=== PATIENT | male | born 1990 | race Two or more races ===

== ENCOUNTER 2018-02-07 01:46 | Inpatient (IN) | payer OTHER ==
[~2018-02-07] VITALS: Ht 172.7 cm; Wt 83.9 kg
[2018-02-07] VITALS (8 sets, daily range): BP systolic 114–166; BP diastolic 66–95
[2018-02-07] MEDS ORDERED: Naloxone 1mg/ml 2ml IVP ONE ×2 (02:00→04:30)
[2018-02-07] MEDS ORDERED: LORazepam Inj 2mg/ml 1ml IV ONE (02:00)
[2018-02-07 02:10] LABS: HEMATOCRIT 51.3 % (42.0-52.0); HEMOGLOBIN 15.7 G/DL (14.2-18.0); MEAN CORPUSCULAR VOLUME 83 FL (80-99); PLATELET COUNT 382 K/UL (150-450); RED BLOOD COUNT 6.19 M/UL (4.70-6.10); RED CELL DISTRIBUTION WIDTH 12.7 % (11.6-14.8); WHITE BLOOD COUNT 15.5 K/UL (4.8-10.8)
[2018-02-07] MEDS ORDERED: LORazepam Inj 2mg/ml 1ml ONE (02:12)
[2018-02-07] MEDS ORDERED: Naloxone 1mg/ml 2ml ONE ×2 (02:15→04:25)
[2018-02-07 02:27] LABS: ALANINE AMINOTRANSFERASE 124 U/L (12-78); ALBUMIN/GLOBULIN RATIO 0.9 (1.0-2.7); ALKALINE PHOSPHATASE 92 U/L (46-116); ANION GAP 13 mmol/L (5-15); ASPARTATE AMINO TRANSFERASE 107 U/L (15-37); BILIRUBIN,TOTAL 0.3 MG/DL (0.2-1.0); BLOOD UREA NITROGEN 19 mg/dL (7-18); CALCIUM 8.4 MG/DL (8.5-10.1); CARBON DIOXIDE 24 MMOL/L (21-32); CHLORIDE 100 MMOL/L (98-107); CKMB 7.5 NG/ML (0.0-3.6); CREATINE KINASE 480 U/L (26-308); CREATININE 2.2 MG/DL (0.55-1.30); POTASSIUM 5.1 MMOL/L (3.5-5.1); SODIUM 137 MMOL/L (136-145)
[2018-02-07 02:34] LABS: APPEARANCE,URINE CLEAR; BILIRUBIN, URINE NEGATIVE (NEGATIVE); COLOR,URINE PALE YELLOW; GLUCOSE, URINE (UA) 4+ (NEGATIVE); KETONES,URINE NEGATIVE (NEGATIVE); LEUKOCYTE ESTERASE ,URINE NEGATIVE (NEGATIVE); NITRITE,URINE NEGATIVE (NEGATIVE); PH,URINE 5 (4.5-8.0); PROTEIN,URINE 2+ (NEGATIVE); UROBILINOGEN,URINE NORMAL MG/DL (0.0-1.0)
[2018-02-07] MEDS ORDERED: Insulin Human Regular 100units/ml 3ml ONE (02:36)
--- NOTE | 2018-02-07 02:41 | Emergency Room Report ---
History of Present Illness General Chief Complaint: Substance Abuse Source: Patient, EMS Present Illness HPI Patient is brought in by paramedics with reports of drug overdose It was reported that the patient had ingested heroin and cocaine Patient was given Narcan in the field With some appropriate response Patient here initially again more awake however throughout his stay becomes more somnolent Patient's history of present illness is limited As the patient is in acute distress Short of breath Drug overdose He is able to report that he has some shortness of breath Patient also had vomitus around his oral mucosa Allergies: Coded Allergies: No Known Allergies (Unverified , 02/07/18) Patient History Limited by: medical condition Past Medical History: see triage record Pertinent Family History: unable to obtain Reviewed Nursing Documentation: PMH: Agreed; PSxH: Agreed Nursing Documentation-PMH Past Medical History: No Stated History Review of Systems All Other Systems: limited - Other than the ones mentioned in the history of present illness all others are reviewed however they do stay limited due to the patient's mental status Physical Exam Vital Signs Date Time Temp Pulse Resp B/P (MAP) Pulse Ox O2 Delivery O2 Flow Rate FiO2 02/07/18 01:33 98.2 134 22 166/84 95 Room Air 98.2 02/07/18 02:23 4.0 Sp02 EP Interpretation: reviewed, normal General Appearance: moderate distress - Respiratory distress Head: normocephalic, atraumatic Eyes: bilateral eye PERRL, bilateral eye EOMI ENT: dry mucus membranes Neck: supple Respiratory: no retraction, crackles - Left lower lobe Cardiovascular #1: tachycardia Gastrointestinal: non tender, soft, no mass Musculoskeletal: normal inspection Neurologic: responsive - Patient initially more awake and responsive, no obvious focal deficit Skin: normal color, no rash Lymphatic: no adenopathy Procedures Critical Care Time Critical Care Time 50 minutes for critical presentation Findings concerning for respiratory pathology and possible failure multiple reexaminations not including any procedural time Medical Decision Making Diagnostic Impression: Primary Impression: Aspiration pneumonia Additional Impressions: Drug overdose Accidental drug overdose ER Course Patient was reportedly brought in from a substance sober living facility Upon arrival the patient was found to be hypoxic on room air Requires repeat Narcan dosing here Patient's x-ray shows concerning infiltrate in the left lower lobe Patient remained tachycardic and now blood work also reveals elevated glucose however no obvious signs of DKA patient provided with further broad-spectrum antibiotics IV hydration and requires higher level of care admission Labs Test 02/07/18 01:45 02/07/18 01:55 02/07/18 02:17 02/07/18 04:10 White Blood Count 15.5 K/UL (4.8-10.8) Red Blood Count 6.19 M/UL (4.70-6.10) Hemoglobin 15.7 G/DL (14.2-18.0) Hematocrit 51.3 % (42.0-52.0) Mean Corpuscular Volume 83 FL (80-99) Mean Corpuscular Hemoglobin 25.4 PG (27.0-31.0) Mean Corpuscular Hemoglobin Concent 30.7 G/DL (32.0-36.0) Red Cell Distribution Width 12.7 % (11.6-14.8) Platelet Count 382 K/UL (150-450) Mean Platelet Volume 6.5 FL (6.5-10.1) Neutrophils (%) (Auto) % (45.0-75.0) Lymphocytes (%) (Auto) % (20.0-45.0) Monocytes (%) (Auto) % (1.0-10.0) Eosinophils (%) (Auto) % (0.0-3.0) Basophils (%) (Auto) % (0.0-2.0) Sodium Level 137 MMOL/L (136-145) Potassium Level 5.1 MMOL/L (3.5-5.1) Chloride Level 100 MMOL/L (98-107) Carbon Dioxide Level 24 MMOL/L (21-32) Anion Gap 13 mmol/L (5-15) Blood Urea Nitrogen 19 mg/dL (7-18) Creatinine 2.2 MG/DL (0.55-1.30) Estimat Glomerular Filtration Rate 36.4 mL/min (>60) Glucose Level 580 MG/DL (74-106) Calcium Level 8.4 MG/DL (8.5-10.1) Total Bilirubin 0.3 MG/DL (0.2-1.0) Aspartate Amino Transf (AST/SGOT) 107 U/L (15-37) Alanine Aminotransferase (ALT/SGPT) 124 U/L (12-78) Alkaline Phosphatase 92 U/L (46-116) Total Creatine Kinase 480 U/L (26-308) Creatine Kinase MB 7.5 NG/ML (0.0-3.6) Creatine Kinase MB Relative Index 1.5 Total Protein 8.5 G/DL (6.4-8.2) Albumin 4.0 G/DL (3.4-5.0) Globulin 4.5 g/dL Albumin/Globulin Ratio 0.9 (1.0-2.7) Lipase 143 U/L (73-393) Serum Alcohol < 3 mg/dL Lactic Acid Level 5.10 mmol/L (0.4-2.0) 2.60 mmol/L (0.66-2.22) Urine Color Pale yellow Urine Appearance Clear Urine pH 5 (4.5-8.0) Urine Specific [place] 1.015 (1.005-1.035) Urine Protein 2+ (NEGATIVE) Urine Glucose (UA) 4+ (NEGATIVE) Urine Ketones Negative (NEGATIVE) Urine Occult Blood 2+ (NEGATIVE) Urine Nitrite Negative (NEGATIVE) Urine Bilirubin Negative (NEGATIVE) Urine Urobilinogen Normal MG/DL (0.0-1.0) Urine Leukocyte Esterase Negative (NEGATIVE) Urine RBC 0-2 /HPF (0 - 0) Urine WBC 0 /HPF (0 - 0) Urine Squamous Epithelial Cells None /LPF (NONE/OCC) Urine Bacteria Few /HPF (NONE) Urine Hyaline Casts 0-2 /LPF (NONE) Urine Fine Granular Casts 0-2 /LPF (NONE) Urine Opiates Screen Positive (NEGATIVE) Urine Barbiturates Screen Negative (NEGATIVE) Phencyclidine (PCP) Screen Negative (NEGATIVE) Urine Amphetamines Screen Negative (NEGATIVE) Urine Benzodiazepines Screen Negative (NEGATIVE) Urine Cocaine Screen Positive (NEGATIVE) Urine Marijuana (THC) Screen Negative (NEGATIVE) EKG Diagnostic Results Rate: tachycardiac Rhythm: other ST Segments: no acute changes Rhythm Strip Diag. Results EP Interpretation: yes Rate: 120 Rhythm: no PVC's, no ectopy, other - Sinus tach Chest X-Ray Diagnostic Results Chest X-Ray Diagnostic Results : Chest X-Ray Ordered: Yes # of Views/Limited/Complete: 1 View Indication: Shortness of Breath EP Interpretation: Yes Interpretation: no pneumothorax, other - Large left-sided infiltrate, heart size normal no acute bony abnormalities Impression: Other - Large left-sided infiltrate Electronically Signed by: Stefan Trevino DO Last Vital Signs Date Time Temp Pulse Resp B/P (MAP) Pulse Ox O2 Delivery O2 Flow Rate FiO2 02/07/18 02:23 98.0 127 20 146/88 93 Nasal Cannula 4.0 98.0 Status: improved Disposition: ADMITTED INPATIENT Condition: Critical Scripts Unable to Obtain Active Prescriptions or Reported Meds Stefan Trevino DO Feb 07, 2018 02:41
[2018-02-07] MEDS ORDERED: Zosyn 3.375gm inj ONE (02:45)
[2018-02-07] MEDS ORDERED: Insulin Human Regular 100units/ml 3ml IV ONE (02:45)
[2018-02-07] MEDS ORDERED: Vancomycin 1.5gm/D5W 250ml 250 ML IVPB ONE ×2 (02:45→03:15)
[2018-02-07] MEDS ORDERED: Piperacillin/Tazobactam 3.375 GM in NS 110 ML IVPB ONE (02:45)
[2018-02-07] MEDS ORDERED: Levalbuterol Inh UD 1.25mg/0.5ml HHN ONE (06:15)
[2018-02-07] MEDS ORDERED: Levalbuterol Inh UD 1.25mg/0.5ml ONE (06:31)
[2018-02-07] MEDS ORDERED: Pantoprazole Inj IVP SCH (09:30)
[2018-02-07] MEDS ORDERED: Albuterol/Ipratropium 3ml neb HHN SCH (11:00)
--- NOTE | 2018-02-07 11:15 | History and Physical Report ---
DATE OF ADMISSION: 02/07/2018 HISTORY OF PRESENT ILLNESS: This is a 27-year-old male, who reportedly overdosed on heroin and cocaine yesterday. The patient was given Narcan in the field as he was found to be stuporous. He was again given Narcan in the emergency room here at [place]. The patient reports shortness of breath. The patient had evidence of vomitus around the oral mucosa. He is short of breath, although he is agitated and states he wants to leave. PAST MEDICAL HISTORY: Notable for substance abuse. SURGERIES: None. HOME MEDICATIONS: None. ALLERGIES: None reported. SOCIAL HISTORY: Not obtainable. PHYSICAL EXAMINATION: GENERAL: Reveals a young man. VITAL SIGNS: Blood pressure is 114/90, heart rate 94, and respirations 20. He is afebrile. He is 93% on non-rebreather mask. HEENT: Unremarkable. CHEST: Shows clear breath sounds bilaterally with normal heart sounds. ABDOMEN: Soft. EXTREMITIES: There is no edema. NEUROLOGIC: Nonfocal. LABORATORY DATA: Lab testing shows white count 15,000, otherwise, normal CBC and BMP except for glucose of 580. Lactic acid 5.1, now 2.6. He has elevation of AST and ALT. Total CK is 480. Creatinine 2.2. Imaging studies unremarkable. IMPRESSION: 1. Hyperglycemia. 2. Substance abuse. 3. Probable pneumonia. 4. Aspiration left lower lobe. 5. Hypoxemia. DISCUSSION: Admit to the hospital. Start IV antibiotics. We will discontinue dextrose and start insulin sliding scale. The patient does not have a known history of diabetes. We will start ice chips. We will follow carefully. Juan Hughes M.D. DR: SHAKA JOB#: [id number] CC:
--- NOTE | 2018-02-07 12:13 | Diagnostic Imaging Report ---
Indication: Chest pain Technique: One view of the chest Comparison: none Findings: There is considerable consolidation left mid and lower lung periphery. There is generalized mild interstitial prominence and bronchial wall thickening elsewhere. The heart is upper limits normal in size. Pleural spaces are grossly clear Impression: Left mid and lower lung infiltrate, most likely pneumonia Generalized interstitial prominence and central bronchial wall thickening. Nonspecific, but suspect on the basis of chronic bronchitis changes
--- NOTE | 2018-02-08 08:50 | Discharge Summary ---
Discharge Summary Discharge Summary _ DATE OF ADMISSION: 02/07/2018 DATE OF DISCHARGE: 02/07/2018. Patient sign AGAINST MEDICAL ADVICE REASON FOR ADMISSION: 27 years old male with past medical history significant for substance abuse, presented to emergency room for overdose on heroine and cocaine. Narcan was given in the field, after patient found to be stuporous . The patient had evidence of vomitus around the mouth. Upon presentation patient with alerted mental status. Vital signs revealed no fever, tachycardia . Another Narcan given in emergency department. Laboratory workup revealed leukocytosis with WBC 15 . Urine toxicology screen was positive for cocaine and opiates. Glucose 580 without signs of DKA. Lactic acid 5.1, repeated 2.6 . AST 107 ,ALT 124, CK 480, creatinine 2.2, stable lipase and total bilirubin. Chest x-ray revealed left mid and lower lobe infiltrate Urinalysis revealed no evidence of UTI. Patient was started on supplemental oxygen. Patient admitted with diagnoses of drug overdose, aspiration, probably pneumonia , hyperglycemia ,hypoxemia HOSPITAL COURSE: Patient admitted. Patient started on empiric IV antibiotics. Sputum and blood culture were ordered, blood culture preliminary negative. IV fluids with dextrose, which initially started, discontinued. Patient had no prior history of diabetes. Blood sugar started to be managed with sliding scale of insulin , and hemoglobin A1c was ordered. Supplemental oxygen provided as needed to keep pulse oximetry above 92% . Pulmonary toilet provided as needed. Patient's mental status back to baseline. Patient expressed desire to leave AGAINST MEDICAL ADVICE . Pulse oximetry was stable in room air . Patient was awake, alert, oriented 4 The risks and consequences of signing AGAINST MEDICAL ADVICE were discussed with patient. Patient verbalized understanding, signed the form and left. FINAL DIAGNOSES: Drug overdose Substance abuse Aspiration Probably pneumonia Hyperglycemia Hypoxemia I have been assigned to dictate discharge summary for this account. I was not involved in the patient's management. Stefany Gillespie NP Feb 08, 2018 08:50
--- NOTE | 2018-02-08 15:42 | Cardiology Report ---
APPROVED REPORT EKG Measurement Heart [id number] Sinus tachycardia Left anterior fascicular block Abnormal ECG
== END 2018-02-07 10:45 | disposition left against medical advice (07) | DRG 816 ==
LOC: EDBD 01:46 → EMR 02:00 → ICU 03:19 → EDBEDREQ 05:39
DX: T40.1X1A Poisoning by heroin, accidental (unintentional), initial encounter (principal); J69.0 Pneumonitis due to inhalation of food and vomit; R41.82 Altered mental status, unspecified; T40.5X1A Poisoning by cocaine, accidental (unintentional), initial encounter; R73.9 Hyperglycemia, unspecified; R09.02 Hypoxemia; F19.10 Other psychoactive substance abuse, uncomplicated
CPT/HCPCS: 36415; 71045; 80053; 80307; 80329; 81003; 82550; 82553; 83605; 83690; 85025; 87040; 87081; 93005; 94640; 94664; J2310; J7620